=== PATIENT | female | born 1965 | race Caucasian/White ===

== ENCOUNTER 2019-05-09 21:34 | Emergency (ER) | payer BC ==
[~2019-05-09] VITALS: Ht 160 cm; Wt 56.8 kg
[2019-05-09 21:34] VITALS: BP 136/61
[2019-05-09] MEDS ORDERED: ASPI81CH33 PO (21:43)
[2019-05-09] MEDS ORDERED: CEPH500T PO (21:43)
[2019-05-09] MEDS ORDERED: CYMB1CAP5 PO (21:43)
[2019-05-09] MEDS ORDERED: FOLI400T PO (21:43)
[2019-05-09] MEDS ORDERED: CELE50CA PO (21:43)
[2019-05-09] MEDS ORDERED: VITAD1000T PO (21:43)
[2019-05-09] MEDS ORDERED: CALC500C16 PO (21:43)
[2019-05-09] MEDS ORDERED: NEUR300C PO (21:43)
[2019-05-09 22:00] LABS: HEMATOCRIT 35.2 % (36.0-47.0); MEAN CORPUSCULAR HGB CONC 31.3 g/dl (32.0-36.5); MEAN CORPUSCULAR VOLUME 89.6 fl (80.0-96.0); PLATELET COUNT, AUTOMATED 426 10^3/uL (150-450); RED BLOOD COUNT 3.93 10^6/uL (4.00-5.40); WHITE BLOOD COUNT 13.4 10^3/uL (4.0-10.0)
[2019-05-09 22:25] LABS: ALBUMIN 3.6 GM/DL (3.2-5.2); ALT/SGPT 16 U/L (12-78); BILIRUBIN,TOTAL 0.3 MG/DL (0.2-1.0); BLOOD UREA NITROGEN 12 MG/DL (7-18); CALCIUM LEVEL 8.7 MG/DL (8.5-10.1); CARBON DIOXIDE LEVEL 29 MEQ/L (21-32); CHLORIDE LEVEL 105 MEQ/L (98-107); CREATININE FOR GFR 0.63 MG/DL (0.55-1.30); GLOMERULAR FILTRATION RATE > 60.0 (>51); GLUCOSE, FASTING 101 MG/DL (70-100); POTASSIUM SERUM 3.7 MEQ/L (3.5-5.1); SODIUM LEVEL 139 MEQ/L (136-145); TOTAL PROTEIN 7.4 GM/DL (6.4-8.2)
[2019-05-10] MEDS ORDERED: hydrOXYzine 25 MG TAB PO STA (00:05)
[2019-05-10] MEDS ORDERED: HYDR-3363 PO (00:09)
[2019-05-10] MEDS ORDERED: PRED20TA PO (00:09)
[2019-05-10] MEDS ORDERED: predniSONE 20 MG TAB PO ONE (00:15)
== END 2019-05-10 00:20 | disposition home or self-care (01) ==
LOC: M ED 21:34
DX: T63.441A Toxic effect of venom of bees, accidental (unintentional), initial encounter (principal); Y92.9 Unspecified place or not applicable; Y93.9 Activity, unspecified; L50.9 Urticaria, unspecified; Z79.82 Long term (current) use of aspirin; Z79.899 Other long term (current) drug therapy